=== PATIENT | female | born 1970 | race Caucasian/White ===

== ENCOUNTER 2017-07-27 10:57 | Emergency (ER) | payer BC ==
[~2017-07-27] VITALS: Ht 162.6 cm; Wt 75.7 kg
[2017-07-27 12:05] VITALS: BP 123/73
== END 2017-07-27 12:05 | disposition home or self-care (01) ==
LOC: ED 10:57
DX: T78.1XXA Other adverse food reactions, not elsewhere classified, initial encounter (principal); R21 Rash and other nonspecific skin eruption; Z88.6 Allergy status to analgesic agent; Z88.8 Allergy status to other drugs, medicaments and biological substances; X58.XXXA Exposure to other specified factors, initial encounter
CPT/HCPCS: J2930; J7613; J7644